=== PATIENT | female | born 1995 | race American Indian/Alaskan Native ===

== ENCOUNTER 2022-07-03 09:48 | Emergency (ER) | payer OTHER ==
[~2022-07-03] VITALS: Ht 182.9 cm; Wt 90.9 kg
[2022-07-03] MEDS ORDERED: BAYE325T13 PO (10:07)
[2022-07-03] MEDS ORDERED: KETOROLAC TROMETHAMINE 10 MG TAB PO ONE (11:55)
[2022-07-03 12:09] VITALS: BP 122/78
== END 2022-07-03 12:14 | disposition home or self-care (01) ==
LOC: M ED 09:48
DX: S99.912A Unspecified injury of left ankle, initial encounter (principal); W22.8XXA Striking against or struck by other objects, initial encounter; Y92.099 Unspecified place in other non-institutional residence as the place of occurrence of the external cause; F17.290 Nicotine dependence, other tobacco product, uncomplicated